=== PATIENT | female | born 1980 | race Caucasian/White ===

== ENCOUNTER → 2018-09-11 | Day surgery (SDC) | payer BC ==
[~2018-09-11] MED LIST: ACETAMINOPHEN 1000 MG/100 ML IV ONE; ADDERALL 20 MG20 MG PO; BELLADONNA/OPIUM 60 MG SUPP PR ONE; DEXAMETHASONE SOD PHOS INJ 4 MG/ML VIAL ONE; ESTRADIOL1 MG PO; FAMOTIDINE 20 MG/2 ML VIAL IV ONE; FENTANYL CITRATE/PF 100MCG/2 ML INJ ONE; IOPAMIDOL 610MG/1ML 300 MG/ML VIAL IV ONE; LEVOFLOXACIN 500MG/D5W 100ML 100 ML IV ONE; LIDOCAINE HCL 2% LOCAL INJ 5 ML SDV VIAL INJ ONE; MIDAZOLAM HCL 2 MG/2 ML VIAL ONE; MORPHINE SULFATE INJ 4 MG/ML INJ 1ML ONE; NORCO 10-325 T1 EACH PO; OMEPRAZOLE40 MG PO; ONDANSETRON HCL INJ 2MG/ML 2ML 2 MG/ML VIAL ONE; PROPOFOL IV EMULSION 10 MG/ML 20 ML VIAL ONE; SEVOFLURANE INHAL SOLN 250 ML PEN BTL ONE; XANAX1 MG PO; [UNRECOGNIZED DRUG - OTHER] PO
--- OUTSIDE RECORDS SUMMARY | 2018-09-11 07:15 | XMS REPORT | Clinical Summary ---
Author Author [facility] Organization [facility] Address Unknown Phone Unavailable Care Team Providers Care Material Liaison Name Role Phone Yeni Mills MD PCP Allergies Comments Active Allergy Reactions Severity Noted Date Penicillins Rash Low 01/13/2018 Medications End Date Status Medication Sig Dispensed Refills Start Date Active montelukast (SINGULAIR) Take 10 mg by 0 10 mg tablet mouth every morning. Active dextroamphetamine-ampheta Take 20 mg by 0 mine (ADDERALL) 20 mg mouth 2 (two) tablet times a day. Active omeprazole (PriLOSEC) 40 Take 40 mg by 0 MG capsule mouth every morning. Active norethindrone (AYGESTIN) Take 5 mg by 0 5 mg tablet mouth daily. Active acetaminophen-codeine TK 1 T PO Q 0 (TYLENOL WITH CODEINE #3) 4-6 H PRN P 8 300-30 mg per tablet Active metroNIDAZOLE (FLAGYL) 0 500 MG tablet 8 Active traMADol (ULTRAM) 50 mg 0 tablet 8 01/16/2018 Discontinued ALPRAZolam (XANAX) 0.5 MG Take 0.5 mg 0 tablet by mouth nightly as needed for anxiety. 01/21/2018 keTOROlac (TORadol) 10 mg Take 1 tablet 20 tablet 0 tablet (10 mg total) 8 by mouth every 6 (six) hours as needed for moderate pain for up to 5 days. 02/08/2018 nitrofurantoin, Take 1 14 capsule 0 macrocrystal-monohydrate, capsule (100 8 (MACROBID) 100 MG capsule mg total) by mouth 2 (two) times a day for 7 days. Active Problems Problem Noted Date Chronic pelvic pain in female 01/15/2018 Encounters Care Team Description Date Type Specialty Brandon Felix MD Calculus of ureter (Primary Dx) 08/14/2018 Transcribe Access Orders Nicko Irby MD Uric acid nephrolithiasis; Calculus of ureter 05/06/2018 Hospital Radiology Encounter Nicko Irby MD Calculus of ureter (Primary Dx); Uric acid nephrolithiasis 04/24/2018 Transcribe Access Orders Van Chaudhari MD Vaginal bleeding (Primary Dx); History of hysterectomy; Acute cystitis without hematuria; Vaginal yeast infection 02/01/2018 Emergency Emergency Medicine Maggy Chaudhari RN 01/16/2018 Patient Quality Outreach Gena Burnham 01/15/2018 Anesthesia General Surgery Event Ariane Perrin MD LAPAROSCOPIC ASSISTED VAGINAL HYSTERECTOMY, BILATERAL SALPINGECTOMY 01/15/2018 Surgery General Surgery Ariane Perrin MD Pelvic pain 01/15/2018 Hospital General Internal Medicine - Encounter 01/16/2018 Ariane Perrin MD Pre-op testing (Primary Dx) 01/13/2018 Pre-Admit Pre-Admission Testing Testing Appointment after 09/10/2017 Family History Medical History Relation Name Comments No Known Problems Brother Diabetes Father No Known Problems Mother No Known Problems Sister Relation Name Status Comments Brother Alive Father Alive Mother Alive Sister Alive Social History Date Tobacco Use Types Packs/Day Years Used Current Every Day Smoker Cigarettes 0.5 Smokeless Tobacco: Never Used Alcohol Use Drinks/Week oz/Week Comments No Sex Assigned at Date Recorded Not on file Industry Job Start Date Occupation Not on file Not on file Not on file Travel End Travel History Travel Start No recent travel history available. Last Filed Vital Signs Time Taken Vital Sign Reading 02/01/2018 12:27 PM CDT Blood Pressure 116/70 02/01/2018 12:27 PM CDT Pulse 74 02/01/2018 8:36 AM CDT Temperature 36.4 C (97.6 F) 02/01/2018 12:27 PM CDT Respiratory Rate 15 02/01/2018 12:27 PM CDT Oxygen Saturation 100% - Inhaled Oxygen - Concentration 02/01/2018 8:36 AM CDT Weight 68 kg (150 lb) 02/01/2018 8:36 AM CDT Height 165.1 cm (5' 5") 02/01/2018 8:36 AM CDT Body Mass Index 24.96 Plan of Treatment Health Maintenance Due Date Last Done Comments CERVICAL CANCER SCREENING 2001 INFLUENZA VACCINE 01/08/2019 Procedures Comments Procedure Name Priority Date/Time Associated Diagnosis CT RENAL STONE PROTOCOL Routine 05/06/2018 Uric acid nephrolithiasis 10:56 AM STRATEGIC DEVELOPMENT MANAGER Calculus of ureter US PELVIC TRANSVAGINAL STAT 02/01/2018 10:57 AM CDT US PELVIC TRANSABDOMINAL STAT 02/01/2018 10:57 AM CDT URINALYSIS SCREEN AND STAT 02/01/2018 MICROSCOPY, WITH REFLEX 9:18 AM CDT TO CULTURE PARTIAL THROMBOPLASTIN STAT 02/01/2018 TIME (PTT) 9:18 AM CDT PROTHROMBIN TIME WITH INR STAT 02/01/2018 9:18 AM CDT HC COMPLETE BLD COUNT STAT 02/01/2018 W/AUTO DIFF 9:18 AM CDT GRAM STAIN STAT 02/01/2018 9:10 AM CDT URINE CULTURE STAT 02/01/2018 9:10 AM CDT HC COMPLETE BLD COUNT Routine 01/16/2018 W/AUTO DIFF 3:45 AM CDT SURGICAL PATHOLOGY Routine 01/15/2018 REQUEST 10:07 AM CDT [place] AN SPINAL BLOCK Routine 01/15/2018 POST-OP PAIN 7:00 AM CDT Procedure Note - Gena Burnham - 01/15/2018 7:00 AM CDT Spinal Block Performed by: GENA BURNHAM Authorized by: GENA BURNHAM Patient Location: Pre-op Start Time: 01/15/2018 6:47 AM End Time: 01/15/2018 6:54 AM Reason for Block: at surgeon's request, post-op pain management Staff: Horacio austint: GENA BURNHAM Performed by: Anesthesio logist patient identified , IV checked, site and side verified, risks and benefits discussed, procedure verified, surgical consent complete, patient position confirmed, monitors and equipment checked and pre-op evaluation complete TIme Out Performed: 01/15/2018 6:47 AM Spinal Block: Patient Position: Sitting Prep: Betadine Monitoring : Blood pressure monitoring , continuous pulse oximetry and heart rate Approach: Midline Interspace : L3-4 Injection Technique: Single injection Needle: Needle Type: Pencil-tip Needle Gauge: 25 G Assessment : Coagulatio n status: Coagulatio n status verified Block assessment : No apparent complicati ons and patient tolerated procedure well Notes: Sterile technique used with hat, gloves and mask HYSTERECTOMY, VAGINAL, 01/15/2018 Pelvic pain LAPAROSCOPIC-ASSISTED 7:00 AM CDT Case Notes REQ 0700 START, EMAILED FRANK 10/25 AND 10/28 RE: START TIME 10/28 FRANK TORRES CONFIRMED VIA EMAIL 10AM IS OK 10/29 FRANK TORRES R/S 11/13 MELISSA Special Needs REQ 0700 START POC , URINE Routine 01/15/2018 6:20 AM CDT ZZESTIMATED GFR Routine 01/13/2018 10:30 AM CDT TYPE AND SCREEN Routine 01/13/2018 Pre-op testing 10:30 AM CDT BASIC METABOLIC PANEL Routine 01/13/2018 Pre-op testing 10:30 AM CDT HC COMPLETE BLD COUNT Routine 01/13/2018 Pre-op testing W/AUTO DIFF 10:30 AM CDT after 09/10/2017 Results * CT Renal Stone Protocol (05/06/2018 10:56 AM STRATEGIC DEVELOPMENT MANAGER) Narrative Performed At EXAMINATION:CT RENAL STONE PROTOCOL HM RADIANT CLINICAL HISTORY:N20.0 Calculus of kidney, N20.1 Calculus of ureter, N20.0N20.1 COMPARISON:None. TECHNIQUE:CT of the abdomen and pelvis without intravenous contrast. Absence of contrast decreases sensitivity for detection of focal lesions and vascular pathology. All CT scan performed using radiation dose reduction techniques. Technical factors are evaluated and adjusted to ensure appropriate moderation of exposure. Automated dose management technology is applied to adjust the radiation dose to minimize expose whileachieving a diagnostic quality image. FINDINGS: LUNG BASES: The lung bases are clear. HEPATOBILIARY: 2 cysts are seen at the dome of the liver with the largest cyst measuring approximately 1.7 cm.Limited evaluation of the liver is otherwise unremarkable. No intrahepatic biliary dilatation is seen. GALLBLADDER: No gallstones are seen. No wall thickening or pericholecystic fluid collection is identified. SPLEEN: Limited nonenhanced evaluation of the spleen is unremarkable.No splenomegaly. PANCREAS: Limited nonenhanced evaluation of the pancreas is unremarkable.No focal masses or ductal dilation. ADRENALS: The adrenal glands are unremarkable. No adrenal nodules. KIDNEYS: Scattered nonobstructive bilateral calyceal calculi as are seen. The largest right elbow calculus measuring approximately 6 mm. The largest left midpole calculus measuring approximately 4 mm. No hydronephrosis is seen. Lobular in contour is seen of the left kidney, suggesting of persistent fecal lobulation. Probable 1.2 cm hyperdense parapelvic cystcyst is seen within the lower pole of the left kidney. An approximately 2 cm parapelvic cyst is seen within the lower pole of the right kidney. Limited nonenhanced evaluation of the kidneys otherwise unremarkable. PERITONEUM/RETROPERITONEUM: No mesenteric or retroperitoneal pathologic adenopathy is seen. No ascites is seen. GI TRACT:The small bowel is normal in caliber. Scattered diverticula are seen. The colon is otherwise unremarkable. No wall thickening is identified. There is no evidence of inflammatory process. The appendix is normal. BONES: Unremarkable. VASCULATURE: Unremarkable. PELVIS: BLADDER: The urinary bladder is unremarkable. GENITALIA: The uterus is not seen, suggestive of surgically absent. FLUID: None. IMPRESSION: Bilateral nonobstructive nephrolithiasis. No CT evidence of obstructive the uropathy. Probable Bosniak category IIF left renal cyst and Bosniak category I right renal cyst. Mild diverticulosis. No CT evidence of appendicitis, colitis or bowel obstruction. [id number] Procedure Note Hm Interface, Radiology Results Incoming - 05/06/2018 11:16 AM STRATEGIC DEVELOPMENT MANAGER EXAMINATION: CT RENAL STONE PROTOCOL CLINICAL HISTORY: N20.0 Calculus of kidney, N20.1 Calculus of ureter, N20.0 N20.1 COMPARISON: None. TECHNIQUE: CT of the abdomen and pelvis without intravenous contrast. Absence of contrast decreases sensitivity for detection of focal lesions and vascular pathology. All CT scan performed using radiation dose reduction techniques. Technical factors are evaluated and adjusted to ensure appropriate moderation of exposure. Automated dose management technology is applied to adjust the radiation dose to minimize expose while achieving a diagnostic quality image. FINDINGS: LUNG BASES: The lung bases are clear. HEPATOBILIARY: 2 cysts are seen at the dome of the liver with the largest cyst measuring approximately 1.7 cm. Limited evaluation of the liver is otherwise unremarkable. No intrahepatic biliary dilatation is seen. GALLBLADDER: No gallstones are seen. No wall thickening or pericholecystic fluid collection is identified. SPLEEN: Limited nonenhanced evaluation of the spleen is unremarkable. No splenomegaly. PANCREAS: Limited nonenhanced evaluation of the pancreas is unremarkable. No focal masses or ductal dilation. ADRENALS: The adrenal glands are unremarkable. No adrenal nodules. KIDNEYS: Scattered nonobstructive bilateral calyceal calculi as are seen. The largest right elbow calculus measuring approximately 6 mm. The largest left midpole calculus measuring approximately 4 mm. No hydronephrosis is seen. Lobular in contour is seen of the left kidney, suggesting of persistent fecal lobulation. Probable 1.2 cm hyperdense parapelvic cyst cyst is seen within the lower pole of the left kidney. An approximately 2 cm parapelvic cyst is seen within the lower pole of the right kidney. Limited nonenhanced evaluation of the kidneys otherwise unremarkable. PERITONEUM/RETROPERITONEUM: No mesenteric or retroperitoneal pathologic adenopathy is seen. No ascites is seen. GI TRACT: The small bowel is normal in caliber. Scattered diverticula are seen. The colon is otherwise unremarkable. No wall thickening is identified. There is no evidence of inflammatory process. The appendix is normal. BONES: Unremarkable. VASCULATURE: Unremarkable. PELVIS: BLADDER: The urinary bladder is unremarkable. GENITALIA: The uterus is not seen, suggestive of surgically absent. FLUID: None. IMPRESSION: Bilateral nonobstructive nephrolithiasis. No CT evidence of obstructive the uropathy. Probable Bosniak category IIF left renal cyst and Bosniak category I right renal cyst. Mild diverticulosis. No CT evidence of appendicitis, colitis or bowel obstruction. [id number] Performing Organization Address City/State/Zipcode Phone Number [facility] [phone] [place] [address] * Pelvic Transabdominal (02/01/2018 10:57 AM CDT) Narrative Performed At EXAMINATION:US PELVIC TRANSVAGINAL, US PELVIC TRANSABDOMINAL RADIANT CLINICAL HISTORY:bleeding post hysterectomy COMPARISON:None. TECHNIQUE:Transverse and longitudinal transvaginal and transabdominal sonographic images of the pelvis were obtained. Grayscale, color Doppler, and spectral waveform analysis of the ovarian vessels was performed. FINDINGS: Postsurgical changes are seen from prior hysterectomy. Small amount of free fluid in the pelvis. There is some increased vascularity of the vaginal cuff. Neither ovary can be visualized and may be surgically absent. IMPRESSION: Prior hysterectomy. Small amount of nonspecific free fluid in the pelvis, possibly postoperative. Increased flow within the vaginal cuff may represent expected postoperative inflammation from recent surgery although infection cannot be excluded and can be clinically correlated. [facility]-[id number] Procedure Note Interface, Radiology Results Incoming - 02/01/2018 11:04 AM CDT EXAMINATION: US PELVIC TRANSVAGINAL, US PELVIC TRANSABDOMINAL CLINICAL HISTORY: bleeding post hysterectomy COMPARISON: None. TECHNIQUE:Transverse and longitudinal transvaginal and transabdominal sonographic images of the pelvis were obtained. Grayscale, color Doppler, and spectral waveform analysis of the ovarian vessels was performed. FINDINGS: Postsurgical changes are seen from prior hysterectomy. Small amount of free fluid in the pelvis. There is some increased vascularity of the vaginal cuff. Neither ovary can be visualized and may be surgically absent. IMPRESSION: Prior hysterectomy. Small amount of nonspecific free fluid in the pelvis, possibly postoperative. Increased flow within the vaginal cuff may represent expected postoperative inflammation from recent surgery although infection cannot be excluded and can be clinically correlated. [facility]-[id number] Performing Organization Address City/State/Zipcode Phone Number [facility] [address] [place] [address] * US Pelvic Transvaginal (02/01/2018 10:57 AM CDT) Narrative Performed At EXAMINATION:US PELVIC TRANSVAGINAL, US PELVIC TRANSABDOMINAL RADIANT CLINICAL HISTORY:bleeding post hysterectomy COMPARISON:None. TECHNIQUE:Transverse and longitudinal transvaginal and transabdominal sonographic images of the pelvis were obtained. Grayscale, color Doppler, and spectral waveform analysis of the ovarian vessels was performed. FINDINGS: Postsurgical changes are seen from prior hysterectomy. Small amount of free fluid in the pelvis. There is some increased vascularity of the vaginal cuff. Neither ovary can be visualized and may be surgically absent. IMPRESSION: Prior hysterectomy. Small amount of nonspecific free fluid in the pelvis, possibly postoperative. Increased flow within the vaginal cuff may represent expected postoperative inflammation from recent surgery although infection cannot be excluded and can be clinically correlated. [facility]-[id number] Procedure Note Interface, Radiology Results Incoming - 02/01/2018 11:04 AM CDT EXAMINATION: US PELVIC TRANSVAGINAL, US PELVIC TRANSABDOMINAL CLINICAL HISTORY: bleeding post hysterectomy COMPARISON: None. TECHNIQUE:Transverse and longitudinal transvaginal and transabdominal sonographic images of the pelvis were obtained. Grayscale, color Doppler, and spectral waveform analysis of the ovarian vessels was performed. FINDINGS: Postsurgical changes are seen from prior hysterectomy. Small amount of free fluid in the pelvis. There is some increased vascularity of the vaginal cuff. Neither ovary can be visualized and may be surgically absent. IMPRESSION: Prior hysterectomy. Small amount of nonspecific free fluid in the pelvis, possibly postoperative. Increased flow within the vaginal cuff may represent expected postoperative inflammation from recent surgery although infection cannot be excluded and can be clinically correlated. [facility]-[id number] Performing Organization Address City/State/Zipcode Phone Number [facility] [address] [place] [address] * Urinalysis screen and microscopy, with reflex to culture (02/01/2018 9:18 AM CDT) Specimen site Clean catch [facility] DEPARTMENT OF PATHOLOGY AND GENOMIC MEDICINE Color, UA Yellow [facility] DEPARTMENT OF PATHOLOGY AND GENOMIC MEDICINE Appearance, UA Hazy [facility] DEPARTMENT OF PATHOLOGY AND GENOMIC MEDICINE Specific gravity, UA 1.025 1.001 - 1.035 [facility] DEPARTMENT OF PATHOLOGY AND GENOMIC MEDICINE pH, UA 6.0 5.0 - 8.5 [facility] DEPARTMENT OF PATHOLOGY AND GENOMIC MEDICINE Protein, UA 1+ (A) Negative [facility] DEPARTMENT OF PATHOLOGY AND GENOMIC MEDICINE Glucose, UA Negative Negative [facility] DEPARTMENT OF PATHOLOGY AND GENOMIC MEDICINE Ketones, UA Negative Negative [facility] DEPARTMENT OF PATHOLOGY AND GENOMIC MEDICINE Bilirubin, UA Negative Negative [facility] DEPARTMENT OF PATHOLOGY AND GENOMIC MEDICINE Blood, UA Moderate (A) Negative [facility] DEPARTMENT OF PATHOLOGY AND GENOMIC MEDICINE Nitrite, UA Negative Negative [facility] DEPARTMENT OF PATHOLOGY AND GENOMIC MEDICINE Urobilinogen, UA 4.0 mg/dl <2.0 [facility] DEPARTMENT OF PATHOLOGY AND GENOMIC MEDICINE Leukocyte esterase, UA Small (A) Negative [facility] DEPARTMENT OF PATHOLOGY AND GENOMIC MEDICINE Epithelial cells, UA 1 /HPF [facility] DEPARTMENT OF PATHOLOGY AND GENOMIC MEDICINE WBC, UA 11 (H) 0 - 5 /HPF [facility] DEPARTMENT OF PATHOLOGY AND GENOMIC MEDICINE RBC, UA 19 (H) 0 - 5 /HPF [facility] DEPARTMENT OF PATHOLOGY AND GENOMIC MEDICINE Bacteria, UA Few None seen [facility] DEPARTMENT OF PATHOLOGY AND GENOMIC MEDICINE Yeast, UA None seen [facility] DEPARTMENT OF PATHOLOGY AND GENOMIC MEDICINE Yeast with pseudohyphae, None seen [facility] DEPARTMENT [facility] PATHOLOGY AND GENOMIC MEDICINE Calcium oxalate crystals, Few [facility] DEPARTMENT [facility] PATHOLOGY AND GENOMIC MEDICINE Specimen Urine Performing Organization Address City/[facility] Phone Number [facility] DEPARTMENT OF [facility], [address] [place] [address] PATHOLOGY AND [employer] MEDICINE * Partial thromboplastin time, activated (02/01/2018 9:18 AM CDT) PTT 26.5 23.0 - 36.0 sec [facility] DEPARTMENT OF Comment: PATHOLOGY AND PTT therapeutic range for GENOMIC MEDICINE unfractionated heparin is 61.0-112.0 seconds which corresponds to Anti-Xa 0.3-0.7 U/ml. Specimen Blood Performing Organization Address City/[facility] Phone Number [facility] [place] [address], [address] [place] [address] PATHOLOGY AND [employer] [facility] * Prothrombin time with INR (02/01/2018 9:18 AM CDT) Prothrombin time 12.5 12.0 - 15.0 sec [facility] DEPARTMENT OF PATHOLOGY AND GENOMIC MEDICINE INR 0.9 [facility] DEPARTMENT OF Comment: PATHOLOGY AND The International Normalized GENOMIC MEDICINE Ratio (INR) is a therapeutic monitoring tool for patients who are stable on oral anticoagulant therapy. An INR of 2.0-3.0 is suggested for deep vein thrombosis/pulmonary embolism. Specimen Blood Performing Organization Address City/[facility]/Zipcode Phone Number [facility] DEPARTMENT OF [facility] [address], [address] [place] [address] PATHOLOGY AND [employer] [facility] * CBC with platelet and differential (02/01/2018 9:18 AM CDT) Only the most recent of 3 results within the time period is included. WBC 7.21 4.50 - 11.00 k/uL [facility] DEPARTMENT OF PATHOLOGY AND GENOMIC MEDICINE RBC 4.04 (L) 4.20 - 5.50 m/uL [facility] DEPARTMENT OF PATHOLOGY AND GENOMIC MEDICINE HGB 13.3 12.0 - 16.0 g/dL [facility] DEPARTMENT OF PATHOLOGY AND GENOMIC MEDICINE HCT 38.3 37.0 - 47.0 % [facility] DEPARTMENT OF PATHOLOGY AND GENOMIC MEDICINE MCV 94.8 82.0 - 100.0 fL [facility] DEPARTMENT OF PATHOLOGY AND GENOMIC MEDICINE MCH 32.9 27.0 - 34.0 pg [facility] DEPARTMENT OF PATHOLOGY AND GENOMIC MEDICINE MCHC 34.7 31.0 - 37.0 g/dL [facility] DEPARTMENT OF PATHOLOGY AND GENOMIC MEDICINE RDW - SD 41.1 37.0 - 55.0 fL [facility] DEPARTMENT OF PATHOLOGY AND GENOMIC MEDICINE MPV 9.5 8.8 - 13.2 fL [facility] DEPARTMENT OF PATHOLOGY AND GENOMIC MEDICINE Platelet count 308 150 - 400 k/uL [facility] DEPARTMENT OF PATHOLOGY AND GENOMIC MEDICINE Nucleated RBC 0.00 /100 WBC [facility] DEPARTMENT OF PATHOLOGY AND GENOMIC MEDICINE Neutrophils 52.5 39.0 - 69.0 % [facility] DEPARTMENT OF PATHOLOGY AND GENOMIC MEDICINE Lymphocytes 35.9 25.0 - 45.0 % [facility] DEPARTMENT OF PATHOLOGY AND GENOMIC MEDICINE Monocytes 6.7 0.0 - 10.0 % [facility] DEPARTMENT OF PATHOLOGY AND GENOMIC MEDICINE Eosinophils 4.0 0.0 - 5.0 % [facility] DEPARTMENT OF PATHOLOGY AND GENOMIC MEDICINE Basophils 0.6 0.0 - 1.0 % [facility] DEPARTMENT OF PATHOLOGY AND GENOMIC MEDICINE Immature granulocytes 0.3Comment: "Immature 0.0 - 1.0 % [facility] DEPARTMENT OF granulocytes" (promyelocytes, PATHOLOGY AND myelocytes, metamyelocytes) GENOMIC MEDICINE Specimen Blood Performing Organization Address City/State/Zipcode Phone Number [facility] [place] [address], [address] [place] [address] PATHOLOGY AND GENOMIC MEDICINE * Gram stain (02/01/2018 9:10 AM CDT) Gram stain result Rare WBC's [facility] DEPARTMENT OF No organisms seen PATHOLOGY AND Comment: GENOMIC MEDICINE Specimen Information Specimen Source: Urine Specimen Site: Clean catch Specimen Urine Performing Organization Address City/State/Zipcode Phone Number [facility] DEPARTMENT OF [address] [place] [address] PATHOLOGY AND GENOMIC MEDICINE * Urine culture (02/01/2018 9:10 AM CDT) Urine culture isolate Yeast [facility] DEPARTMENT OF 10-1 cfu/ml PATHOLOGY AND (A) GENOMIC MEDICINE Comment: Specimen Information Specimen Source: Urine Specimen Site: Clean catch Specimen Urine Performing Organization Address City/State/Zipcode Phone Number [facility] DEPARTMENT OF [address] [place] [address] PATHOLOGY AND GENOMIC MEDICINE * Surgical pathology request (01/15/2018 10:07 AM CDT) [facility] [place] [facility]OMIC MEDICINE Surgical pathology report See link below for PDF Lab [facility] DEPARTMENT OF Report PATHOLOGY AND GENOMIC MEDICINE Result status This is Final Report to [facility] DEPARTMENT OF [id number] PATHOLOGY AND GENOMIC MEDICINE Performing Organization Address City/[facility] Phone Number [facility] [place] [place] [id number], [address] [place] [address] PATHOLOGY AND GENOMIC MEDICINE * POC , urine (01/15/2018 6:20 AM CDT) test urine, POC NegativeComment: hcg [id number] QC done YesComment: exp 03/09/2019 Specimen Urine * Estimated GFR (01/13/2018 10:30 AM CDT) GFR Non Af Amer 70 mL/min/1.73 m2 [facility] DEPARTMENT OF PATHOLOGY AND GENOMIC MEDICINE GFR Af Amer 85 mL/min/1.73 m2 [facility] DEPARTMENT OF Comment: PATHOLOGY AND Chronic kidney disease: <60 GENOMIC MEDICINE mL/min/1.73m2 Kidney failure: <15 mL/min/1.73m2 The estimated GFR is calculated from the IDMS-traceable Modification of Diet in Renal Disease Equation. The accuracy of the calculation is poor when the creatinine is normal. Calculated values >90 mL/min/1.73m2 are not reported. This equation has not been validated in children (<18 years), women, the elderly (>70 years), or ethnic groups other than Caucasians and Americans. Specimen Plasma specimen Performing Organization Address City/State/Zipcode Phone Number [facility] [place] [id number], [address] [place] [address] PATHOLOGY AND GENOMIC MEDICINE * Type and screen (01/13/2018 10:30 AM CDT) ABO grouping O [facility] DEPARTMENT OF PATHOLOGY AND GENOMIC MEDICINE Rh type POS [facility] DEPARTMENT OF PATHOLOGY AND GENOMIC MEDICINE Antibody screen (gel) NEG [facility] DEPARTMENT OF PATHOLOGY AND GENOMIC MEDICINE Specimen Blood Performing Organization Address [facility] Corporation[facility] Phone Number [address] [place] [address] PATHOLOGY AND GENOMIC MEDICINE * Basic metabolic panel (01/13/2018 10:30 AM CDT) Sodium 142 135 - 148 mEq/L [facility] DEPARTMENT OF PATHOLOGY AND GENOMIC MEDICINE Potassium 3.6 3.5 - 5.0 mEq/L [facility] DEPARTMENT OF PATHOLOGY AND GENOMIC MEDICINE Chloride 104 98 - 112 mEq/L [facility] DEPARTMENT OF PATHOLOGY AND GENOMIC MEDICINE CO2 24 24 - 31 mEq/L [facility] DEPARTMENT OF PATHOLOGY AND GENOMIC MEDICINE Anion gap 14 7 - 15 mEq/L [facility] DEPARTMENT OF PATHOLOGY AND GENOMIC MEDICINE BUN 11 6 - 20 mg/dL [facility] DEPARTMENT OF PATHOLOGY AND GENOMIC MEDICINE Creatinine 0.9 0.5 - 0.9 mg/dL [facility] DEPARTMENT OF PATHOLOGY AND GENOMIC MEDICINE Glucose 121 (H) 65 - 99 mg/dL [facility] DEPARTMENT OF PATHOLOGY AND GENOMIC MEDICINE Calcium 9.3 8.3 - 10.2 mg/dL [facility] DEPARTMENT OF PATHOLOGY AND GENOMIC MEDICINE Specimen Plasma specimen Performing Organization Address [facility] Corporationcode Phone Number [address] [place] [address] PATHOLOGY AND GENOMIC MEDICINE after 09/10/2017 Insurance Payer Benefit Subscriber ID Type Phone Address Plan / Group BCBS BCBS xxxxxxxxxxxx PPO CHOICE PPO/DON MIRANDA PPO Advance Directives Patient has advance care planning documents, and code status on file. For more i nformation, please contact: [address] [address] [place] [address] Date Inactivated Comments Code Status Date Activated 01/16/2018 6:08 PM Full Code 01/15/2018 11:19 AM Code Status decision reached by: Patient
[2018-09-11 10:45] VITALS: BP 142/90
--- NOTE | 2018-09-18 15:52 | Operative Report ---
DATE OF PROCEDURE: 09/11/2018 SURGEON: Brandon Felix MD PREOPERATIVE DIAGNOSIS: Bilateral kidney stones. POSTOPERATIVE DIAGNOSES: Right sided kidney stone. No visualized stone seen on the left. OPERATIVE PROCEDURE PERFORMED: Cystoscopy, bilateral retrograde pyelogram and bilateral ureteroscopy with stone retraction. ANESTHESIA: General anesthesia. ESTIMATED BLOOD LOSS: Minimal. INDICATIONS: Ms. Rina De La Fuente is a 37-year-old woman with a recent history of kidney stones, who had previously undergone bilateral ureteroscopy with stone retraction. She returned with continued pain despite stone removal. Repeat CT scan revealed some continued stones in the kidney from both sides. She now presents for definitive surgical management of this problem. She has been told in advance that many of the stone seen may be intraparenchymal and not in the collecting system. PROCEDURE IN DETAIL: The patient was brought into the operating room, placed in the supine position. After administration of general anesthesia, she was placed in dorsal lithotomy position and prepped and draped in usual sterile fashion. Cystourethroscopy was performed using 21-Guinean cystoscope. The anterior and posterior urethra were noted to be normal. The bladder was entered without difficulty. Upon entering into the bladder, the ureteral orifices were in normal anatomic position and produced a clear efflux. There were no mucosal lesions identified. Using a 5-Guinean open ended catheter, bilateral retrograde pyelograms were performed. This revealed no obvious filling defect in either the ureters or the collecting system. Attention was first directed towards the right side because that was more symptomatic per the patient. A wire was placed up into the right renal pelvis under fluoroscopic guidance and a ureteral access sheath was placed into the proximal ureter. Flexible ureteroscopy was then performed. The patient was noted to have a normal proximal ureter on that side. The renal pelvis was entered. There was one small stone approximately 1 to 2 mm in length seen in the mid pole calyx. This was removed after irrigation. All the calyces were individually visualized with the flexible scope and there were no other free floating stone seen. There was one stone, which was attached to the renal pyramids and this was removed with a basket. All the other calcifications that were identified were completely intraparenchymal and a decision was made not to dig those out with a laser at this time. Given the patients significant pain with stents last time, no stent was left on the side. Our attention was then returned to the left side and a wire was placed into the left renal pelvis under fluoroscopic guidance. Another ureteral access sheath was placed and left ureteroscopy was performed on this side. Again, all the calyces on the left were individually identified and visualized in their entirety. There were no free floating stone seen on the left side and no stones that were easily grasped of the parenchyma. There were however multiple calcifications that were seen to be encased in the parenchyma. Again, given her sensitivity to stent, last time no stent was left on that side. The ureteral access sheath and the wire were removed and the bladder was drained in its entirety. The patient was returned to the supine position and anesthesia was reversed. She was transferred to a bed and taken to the Postanesthesia Care Unit in good condition. Of note, the needle and instrument count were correct after conclusion of the case. MD THOR Wilson/RIP /[id number] NOEMY
== END | disposition home or self-care (01) ==
LOC: OR 07:13
PROVIDERS: ATTEND Urology
DX: N20.0 Calculus of kidney (principal); Z88.0 Allergy status to penicillin; Z87.442 Personal history of urinary calculi; K21.9 Gastro-esophageal reflux disease without esophagitis; F41.9 Anxiety disorder, unspecified
CPT/HCPCS: 52352; 74420; C1758; C1766; J0131; J1100; J1956; J2001; J2250; J2270; J2405; J2704; Q9967